=== PATIENT | male | born 1975 | race Hispanic/Latino ===

== ENCOUNTER 2017-01-14 19:01 | Emergency (ER) | payer OTHER ==
[2017-01-14 19:02] VITALS: BMI 27.2
[2017-01-14 19:26] VITALS: TEMP 98.1
[2017-01-14 19:49] VITALS: RESP 18; O2SAT 98
[2017-01-14 20:12] LABS: RBC URINE < 1 /hpf (0-3); URINE BILIRUBIN NEGATIVE (NEGATIVE); URINE BLOOD NEGATIVE (NEGATIVE); URINE COLOR Colorless (YELLOW); URINE GLUCOSE (UA) NORMAL (Normal); URINE KETONE NEGATIVE (NEGATIVE); URINE LEUKOCYTE ESTERASE NEG Leu/uL (Negative); URINE PROTEIN NEGATIVE (NEGATIVE); URINE UROBILINOGEN NORMAL mg/dL (0.2-1.0); WBC URINE < 1 /hpf (0-5)
[2017-01-14] MEDS ORDERED: Sodium Chloride 0.9% 500 ML IV ONE (20:12)
[2017-01-14] MEDS ORDERED: Alum-Mag Hydrox-Simethicone Susp (30 mL) PO STA (20:13)
[2017-01-14] MEDS ORDERED: Aluminum Hydroxide/Magnesium Hydroxide Susp (30 mL) ONE (20:18)
[2017-01-14] MEDS ORDERED: Sodium Chloride 0.9% 1,000 ML ONE (20:18)
[2017-01-14 20:41] LABS: BASO % 0.3 % (0.0-2.0); EOS # 0.2 K/uL (0.0-0.7); EOS % 1.5 % (0.0-4.0); HEMATOCRIT 38.7 % (35.0-51.0); LYMPH # 1.2 K/uL (1.0-4.3); MEAN CORPUSCULAR HGB CONC 34.1 g/dL (33.0-37.0); MONO # 0.6 K/uL (0.0-0.8); MONO % 5.5 % (0.0-10.0); RED CELL DISTRIBUTION WIDTH 12.9 % (11.5-14.5); WHITE BLOOD COUNT 10.7 K/uL (4.8-10.8)
[2017-01-14 20:46] VITALS: BP 153/85; PULSE 78
[2017-01-14 20:51] LABS: CHLORIDE 96 mmol/L (98-107); POTASSIUM 4.2 mmol/L (3.6-5.2); SODIUM 140 mmol/L (132-148)
[2017-01-14 20:53] LABS: ALB/GLOB RATIO 1.2 (1.0-2.1); ALKALINE PHOSPHATASE 58 U/L (38-126); AST/SGOT 33 U/L (17-59); BILIRUBIN,TOTAL 0.4 mg/dL (0.2-1.3); CARBON DIOXIDE 29 mmol/L (22-30); GFR AFRICAN-AMERICAN > 60; TOTAL PROTEIN 8.6 g/dL (6.3-8.3)
[2017-01-14 20:54] LABS: ALT/SGPT 36 U/L (21-72); BLOOD UREA NITROGEN 10 mg/dL (9-20); CALCIUM 9.6 mg/dl (8.6-10.4); GLUCOSE,RANDOM 96 mg/dL (75-110)
[2017-01-14 20:55] LABS: ALCOHOL SERUM < 10 mg/dl (0-10)
--- NOTE | 2017-01-14 21:34 | C.PDOC ---
History Of Present Illness A 41 year old male with PMH HTN, peptic ulcers, and anxiety presents to the emergency room with complaints of intermittent epigastric pain for 6 + hrs. Patient reports that the pain radiates up to the chest. Patient notes similar episodes in the past- including one 2 weeks ago when evaluated in [facility]. Patient believes the pain may be due to his anxiety. Patient notes social stressors at home, such as children and mother of children. Patient denies any suicidal/ homicidal ideation, drug/ETOH use, shortness of breath, nausea, vomiting, diarrhea, or any other complaints. Time Seen by Provider: 01/14/17 19:50 Chief Complaint (Nursing): Anxiety History Per: Patient History/Exam Limitations: no limitations Onset/Duration Of Symptoms: Hrs, Intermittent Episodes Current Symptoms Are (Timing): Still Present Suicide/Self Injury Attempted (Context): None Modifying Factor(s): None Severity: Mild Associated Symptoms: Anxiety. denies: Suicidal Thoughts, Suicidal Plan Recent travel outside of the [place]: No Past Medical History Reviewed: Historical Data, Nursing Documentation, Vital Signs Vital Signs: Last Vital Signs Temp 98.1 F 01/14/17 19:22 Pulse 78 01/14/17 20:45 Resp 18 01/14/17 20:45 BP 153/85 H 01/14/17 20:45 Pulse Ox 98 01/15/17 01:16 - Medical History PMH: Asthma, Back Problems (herniated disc), HTN, Seizures (epilepsy "but I was cleared") Denies: Anxiety, Bipolar Disorder, Depression, Personality Disorder, Post Traumatic Stress Disorder, Schizophrenia - [facility] Procedures TETANUS TOXOID ADMINIST (07/23/14) Family History: States: Unknown Family Hx - Social History Hx Tobacco Use: No Hx Alcohol Use: Yes Hx Substance Use: No - Immunization History Hx Tetanus Toxoid Vaccination: No Hx Influenza Vaccination: No Hx Pneumococcal Vaccination: No Review Of Systems Except As Marked, All Systems Reviewed And Found Negative. Respiratory: Negative for: Shortness of Breath Gastrointestinal: Positive for: Abdominal Pain (Intermittent epigastric pain). Negative for: Nausea, Vomiting, Diarrhea Psych: Positive for: Anxiety. Negative for: Suicidal ideation Physical Exam - Physical Exam Appears: Non-toxic, No Acute Distress, Other (Anxious) Skin: Normal Color, Warm, Dry, No Rash Head: Atraumatic, Normacephalic Eye(s): bilateral: Normal Inspection, PERRL, EOMI Ear(s): Bilateral: Normal Nose: Normal Oral Mucosa: Moist Neck: Normal ROM, Supple Lymphatic: Normal Exam Chest: Symmetrical Cardiovascular: Rhythm Regular Respiratory: Normal Breath Sounds, No Rales, No Rhonchi, No Wheezing Gastrointestinal/Abdominal: Soft, No Tenderness, No Guarding, No Rebound Back: Normal Inspection, No CVA Tenderness, No Vertebral Tenderness Extremity: Normal ROM, No Tenderness Neurological/Psych: Oriented x3, Normal Speech, Normal Cognition ED Course And Treatment - Laboratory Results Result Diagrams: 01/14/17 20:35 01/14/17 20:35 ECG: Interpreted By Me, Viewed By Me ECG Rhythm: Sinus Rhythm ECG Interpretation: No Acute Changes Rate From EC O2 Sat by Pulse Oximetry: 98 - Radiology CXR: Interpreted by Me CXR Interpretation: No: Infiltrates Progress Note: CXR and labs ordered. On reevaluation, patient feels better. no chest pain. No sob. no discomfort. PT believes pain is due to his anxiety and notes he is going to the gym to relieve some of his anxiety. Patient is in no distress, abdomen is soft, no rebound or guarding, and is tolerating PO. Patient has no signs or symptoms to suggest surgical pathology. Case discussed with Dr. Gonzales who instructs patient to come to his office tomorrow. Case discussed with Dr. Mcdaniel who agrees with plan and discharge. The results and limitations of this evaluation including the need for possible further care, treatment, and testing were discussed. Follow-up with primary care physician provided as instructed tomorrow WITHOUT FAIL, or if unable to do so return to the emergency department. These instructions were given to the pt who was given the opportunity to ask questions and verbalized understanding. Disposition - Disposition Referrals: Mark Gonzales MD [Staff Provider] - Disposition: HOME/ ROUTINE Disposition Time: 21:31 Condition: STABLE Additional Instructions: Follow up with your doctor tomorrow. REturn to ER is symptoms persist or worsen. Prescriptions: Famotidine [Pepcid] 20 mg PO BID #10 tab Instructions: Anxiety (ED) Forms: Work/School/Gym Excuse, Work Excuse - Clinical Impression Clinical Impression: Anxiety, Abdominal pain - Scribe Statement The provider has reviewed the documentation as recorded by the Kvngibjohn Miner All medical record entries made by the Scribe were at my direction and personally dictated by me. I have reviewed the chart and agree that the record accurately reflects my personal performance of the history, physical exam, medical decision making, and the department course for this patient. I have also personally directed, reviewed, and agree with the discharge instructions and disposition.
--- NOTE | 2017-01-15 08:33 | RAD ---
HISTORY: SOB COMPARISON: Comparison is made to the previous study dated 12/26/2016 TECHNIQUE: Chest PA and lateral FINDINGS: LUNGS: No active pulmonary disease. PLEURA: No significant pleural effusion identified. No pneumothorax apparent. CARDIOVASCULAR: Normal. OSSEOUS STRUCTURES: No significant abnormalities. VISUALIZED UPPER ABDOMEN: Normal. OTHER FINDINGS: None. IMPRESSION: No active disease.
--- NOTE | 2017-01-16 06:34 | CARD ---
APPROVED REPORT EKG Measurement Heart [id number] <Conclusion> Normal sinus rhythm Voltage criteria for left ventricular hypertrophy Abnormal ECG
== END 2017-01-14 21:45 | disposition home or self-care (01) ==
LOC: C.ER 19:01
DX: F41.9 Anxiety disorder, unspecified (principal); R10.13 Epigastric pain
CPT/HCPCS: 71020; 80053; 80320; 80324; 80345; 80346; 80349; 80353; 80358; 80361; 81001; 82550; 82553; 82948; 83690; 83992; 84484; 85025; 93005; 96360; 99285; J7040

== ENCOUNTER 2017-04-16 13:54 | Emergency (ER) | payer OTHER ==
[2017-04-16 13:54] VITALS: BMI 27.2
[2017-04-16 14:02] VITALS: TEMP 98.2
[2017-04-16 14:58] VITALS: BP 110/81; PULSE 74; RESP 17; O2SAT 96
--- NOTE | 2017-04-16 15:02 | C.PDOC ---
History Of Present Illness 42 y/o male presents to ED who states he has been feeling very anxious, reports he feels that his heart has been racing for the past 2 days. He also reports dry mouth. Patient admits to history of hypertension and anxiety, noting he has been compliant with htn meds, but has not started Wellbutrin. He states that blood pressure was elevated when checked at home prior to arrival. Patient admits to being under a lot of stress recently. He denies chest pain, cough, fever, abdominal pain, nausea, vomiting, diarrhea, suicidal/homicidal ideations. Time Seen by Provider: 04/16/17 14:01 Chief Complaint (Nursing): Anxiety History Per: Patient History/Exam Limitations: no limitations Onset/Duration Of Symptoms: Days Current Symptoms Are (Timing): Still Present Suicide/Self Injury Attempted (Context): None Modifying Factor(s): None Severity: Mild Associated Symptoms: denies: Suicidal Thoughts, Suicidal Plan Recent travel outside of the [place]: No Past Medical History Reviewed: Historical Data, Nursing Documentation, Vital Signs Vital Signs: Last Vital Signs Temp 98.2 F 04/16/17 14:01 Pulse 74 04/16/17 14:57 Resp 17 04/16/17 14:57 BP 110/81 04/16/17 14:57 Pulse Ox 96 04/16/17 15:10 - Medical History PMH: Anxiety, Asthma, Back Problems (herniated disc), HTN, Seizures (epilepsy "but I was cleared") - [facility] Procedures TETANUS TOXOID ADMINIST (07/23/14) Family History: States: No Known Family Hx - Social History Hx Tobacco Use: No Hx Alcohol Use: Yes Hx Substance Use: No - Immunization History Hx Tetanus Toxoid Vaccination: No Hx Influenza Vaccination: No Hx Pneumococcal Vaccination: No Review Of Systems Except As Marked, All Systems Reviewed And Found Negative. Constitutional: Negative for: Fever, Chills Cardiovascular: Negative for: Chest Pain, Palpitations Respiratory: Negative for: Cough, Shortness of Breath Gastrointestinal: Negative for: Nausea, Vomiting, Abdominal Pain, Diarrhea Skin: Negative for: Rash Neurological: Negative for: Headache, Dizziness Psych: Positive for: Anxiety Physical Exam - Physical Exam Appears: Non-toxic, No Acute Distress, Other (anxious, speaking in full sentences) Skin: Warm, Dry Head: Normacephalic Eye(s): bilateral: Normal Inspection Oral Mucosa: Moist Cardiovascular: Rhythm Regular (mildly tachycardic) Respiratory: Normal Breath Sounds, No Accessory Muscle Use, No Rales, No Rhonchi , No Wheezing Gastrointestinal/Abdominal: Normal Exam, Bowel Sounds, Soft, No Tenderness Back: Normal Inspection Extremity: Normal ROM Neurological/Psych: Oriented x3 ED Course And Treatment ECG: Interpreted By Me, Viewed By Me (sinis tachycardis 177bpm, normal axis, Q waves II, III, aVF (unchanged from EKG 01/14/17), no acuteST/T wave changes) ECG Interpretation: No Acute Changes O2 Sat by Pulse Oximetry: 96 (RA) Pulse Ox Interpretation: Normal Progress Note: EKG, accucheck ordered and reviewed. Patient given PO Xanax. Reevaluation Time: 15:00 Reassessment Condition: Improved (On reassessment, patient reports he feels much better. No current CP or palpitations, and anxiety has decreased. Vitals currently WNL. Patient requesting medication for his epigastric burning. Rxs for Protonix and Xanax given, and patient instructed to follow up with PMD/ clinic in 1-2 days. He understands he should return to ED immediately if symptoms worsen/return.) Disposition Counseled Patient/Family Regarding: Studies Performed, Diagnosis, Need For Followup, Rx Given - Disposition Referrals: Mark Gonzales MD [Staff Provider] - Disposition: HOME/ ROUTINE Disposition Time: 15:00 Condition: STABLE Additional Instructions: FOLLOW UP WITH YOUR DOCTOR IN 1-2 DAYS USE MEDICATIONS DIRECTED RETURN TO EMERGENCY ROOM IF SYMPTOMS WORSEN Prescriptions: ALPRAZolam [Xanax] 0.25 mg PO Q6 #15 tab Pantoprazole [Protonix EC Tab] 20 mg PO DAILY #30 ect Instructions: Gastroesophageal Reflux Disease (ED), Anxiety (ED) Print Language: AMHARIC - POA Present On Arrival: None - Clinical Impression Clinical Impression: Anxiety, Dyspepsia - Scribe Statement The provider has reviewed the documentation as recorded by the Ketan Fonseca Provider Attestation: All medical record entries made by the Ketan were at my direction and personally dictated by me. I have reviewed the chart and agree that the record accurately reflects my personal performance of the history, physical exam, medical decision making, and the department course for this patient. I have also personally directed, reviewed, and agree with the discharge instructions and disposition.
--- NOTE | 2017-04-19 14:08 | CARD ---
APPROVED REPORT EKG Measurement Heart [id number] ID [id number] <Conclusion> Sinus tachycardia with premature ventricualr complexes Voltage criteria for left ventricular hypertrophy Cannot rule out Inferior infarct, age undetermined Abnormal ECG
== END 2017-04-16 15:17 | disposition home or self-care (01) ==
LOC: C.ER 13:54
DX: F41.9 Anxiety disorder, unspecified (principal); R10.13 Epigastric pain

== ENCOUNTER 2018-04-22 11:56 | Emergency (ER) | payer OTHER ==
[2018-04-22 11:56] VITALS: BMI 25.9
[2018-04-22 12:05] VITALS: TEMP 98.2; O2SAT 98
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
[2018-04-22] MEDS ORDERED: Naproxen 550 mg Tab PO STA (12:27)
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
[2018-04-22] MEDS ORDERED: Naproxen 550 mg Tab PO ONE (13:04)
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
[2018-04-22 13:43] VITALS: BP 129/80; PULSE 70; RESP 16
== END 2018-04-22 13:42 | disposition home or self-care (01) ==
LOC: C.ER 11:56
DX: S39.012A Strain of muscle, fascia and tendon of lower back, initial encounter (principal); S43.401A Unspecified sprain of right shoulder joint, initial encounter; V89.2XXA Person injured in unspecified motor-vehicle accident, traffic, initial encounter

== ENCOUNTER 2018-04-25 09:24 | Day surgery (SDC) | payer OTHER ==
[2018-04-21 14:00] VITALS: BMI 25.9
[2018-04-25] MEDS ORDERED: Bupivacaine 0.25% 20 ML INJ IJ ONE (12:33)
[2018-04-25] MEDS ORDERED: ceFAZolin 1 gm in NS 1 GM/100 ML BAG IVPB ONE (12:33)
[2018-04-25] MEDS ORDERED: Lidocaine Hydrochloride 10 ML INJ ONE (12:34)
[2018-04-25] MEDS ORDERED: Midazolam 2 MG/2 ML VIAL ONE (12:36)
[2018-04-25] MEDS ORDERED: Propofol 10 mg/ml Inj (20 ML) ONE (12:36)
[2018-04-25] MEDS ORDERED: Rocuronium 10 mg/ml (10 ml) ONE (12:58)
[2018-04-25] MEDS ORDERED: Succinylcholine Chloride 20 mg/ml Syr (5 ml) IV ONE (13:14)
[2018-04-25] MEDS ORDERED: Neostigmine Methylsulfate 3mg/3ml Syringe IV ONE (13:30)
[2018-04-25] MEDS ORDERED: Oxycodone/Acetaminophen 5/325 mg Tab PO PRN (13:40)
[2018-04-25] MEDS: HYDROmorphone 0.5 mg/0.5 ml ISec IVP PRN ×2 (14:38→15:21)
[2018-04-25 16:38] VITALS: RESP 16
[2018-04-25 18:13] VITALS: BP 106/56; PULSE 71; TEMP 97.6; O2SAT 100
--- NOTE | 2018-04-26 07:42 | OP ---
PROCEDURE DATE: 04/25/2018 PREOPERATIVE DIAGNOSIS: Incarcerated ventral hernia. POSTOPERATIVE DIAGNOSIS: Incarcerated ventral hernia. PROCEDURE PERFORMED: Repair of incarcerated ventral hernia with extensive lysis of adhesions of bowel repair. SURGEON: Mateus Latham MD ANESTHESIA: General. BLOOD LOSS: 30 mL. POSTOPERATIVE CONDITION: Stable. INDICATIONS FOR SURGERY: This is a 43-year-old male with a painful incarcerated midline ventral hernia above the umbilicus, who now will undergo operative repair. GROSS FINDINGS: The repair was noted to contain incarcerated omentum, and an omentectomy was performed. There was extensive adhesion surrounding the hernia sac which were taken down sharply. An enterotomy of small bowel was was repaired with chromic and silk suture. A primary repair was accomplished using Prolene. DESCRIPTION OF PROCEDURE: The patient was taken to the operating room, general anesthesia administered. The abdomen was prepped and draped. A midline incision was made, and hernia sac was encountered and dissected free. The incarcerated omentum within the hernia sac was removed, after it was divided between clamps with Vicryl ties. There were extensive adhesions in this area, and both small bowel, omentum, and also transverse colon was taken down sharply. A small bowel enterotomy was repaired with chromic and silk. Once this area had been completely freed of adhesions, a primary repair using interrupted 0 Prolene was accomplished. The wound was irrigated with copious amounts of saline solution. There was a large amount of space, and for this reason, an advancement flap was mobilized by mobilizing a full-thickness flap including fascia, making counter incisions, and bringing it together with heavy Vicryl, subcuticular Vicryl, and subcuticular Monocryl. A total of 22 sq cm advancement flap closure was performed. The patient tolerated the procedure well. Returned to recovery room in stable condition. Mateus Latham MD
== END 2018-04-25 18:20 | disposition home or self-care (01) ==
LOC: C.SDS 09:24
PROVIDERS: ATTEND Surgery
DX: K43.6 Other and unspecified ventral hernia with obstruction, without gangrene (principal); K66.0 Peritoneal adhesions (postprocedural) (postinfection)
CPT/HCPCS: 14001; 49561; 49999; 88302; J0690; J1100; J1170; J2001; J2250; J2405; J2704; J2710; J3010